=== PATIENT | male | born 1960 | race American Indian/Alaskan Native ===

== ENCOUNTER 2016-12-23 10:20 | Emergency (ER) | payer OTHER ==
[~2016-12-23] VITALS: Ht 188 cm; Wt 117.4 kg
[~2016-12-23 10:20] MED LIST: ASPI-496 PO; CETI10TA32 PO; HYDR25TA6 PO; METO50TA82 PO; MONT10TA9 PO
[2016-12-23] MEDS ORDERED: SODIUM CHLORIDE 0.9% 1,000 ML IV ONE (10:35)
[2016-12-23] MEDS ORDERED: MOME13HF2 INH (10:50)
[2016-12-23] MEDS ORDERED: ALBU6.7H INH (10:51)
[2016-12-23] MEDS ORDERED: CEFTAROLINE 600 MG in SODIUM CHLORIDE 0.9% 100 ML IV ONE (11:00)
[2016-12-23] MEDS ORDERED: SODIUM CHLORIDE 0.9% 1,000ML IVBOLUS ONE (11:00)
[2016-12-23 11:06] LABS: HEMATOCRIT 40.8 % (39.2-51.8); HEMOGLOBIN 13.9 g/dL (13.7-18.0); WHITE BLOOD COUNT 5.3 x10^3/uL (3.4-10)
[2016-12-23 11:16] LABS: BLOOD UREA NITROGEN 14 mg/dL (7-18)
[2016-12-23 12:36] VITALS: BP 123/76
== END 2016-12-23 13:14 | disposition home or self-care (01) ==
LOC: ED 11:06
DX: L03.115 Cellulitis of right lower limb (principal); I10 Essential (primary) hypertension; J45.909 Unspecified asthma, uncomplicated; Z88.8 Allergy status to other drugs, medicaments and biological substances
CPT/HCPCS: 36415; 73590; 80048; 82040; 83605; 84145; 85025; 87040; 93971; 96365; 99285; J0712; J7030